=== PATIENT | female | born 1980 | race Caucasian/White ===

== ENCOUNTER 2017-12-19 16:07 | Emergency (ER) | payer OTHER ==
[~2017-12-19] VITALS: Ht 172.7 cm; Wt 114.0 kg
[~2017-12-19 16:07] MED LIST: CARI350T PO; NITR100C11 PO; PANT-47 PO; SUCR1ORA2 PO
[2017-12-19] MEDS ORDERED: ketorolac trometh. 30mg/ml inj. IM ONE (16:35)
[2017-12-19] MEDS ORDERED: diazepam 5mg tablet PO ONE (16:35)
[2017-12-19] MEDS ORDERED: NAPR-56 PO (16:38)
[2017-12-19] MEDS ORDERED: METH-360 PO (16:38)
[2017-12-19 17:02] VITALS: BP 148/89
== END 2017-12-19 17:04 | disposition home or self-care (01) ==
LOC: ER 16:07
DX: M54.42 Lumbago with sciatica, left side (principal); G89.29 Other chronic pain; Z86.73 Personal history of transient ischemic attack (TIA), and cerebral infarction without residual deficits; Z79.899 Other long term (current) drug therapy
CPT/HCPCS: 96372; 99283; J1885